=== PATIENT | male | born 1965 | race Two or more races ===

== ENCOUNTER 2018-04-23 07:28 | Outpatient (CLI) | payer BC ==
[2018-04-23 11:20] LABS: BUN - BLOOD UREA NITROGEN 12 mg/dL (6-20); CALCIUM 8.7 mg/dL (8.5-10.3); CARBON DIOXIDE - CO2 26 mmol/L (21-32); CHLORIDE 106 mmol/L (101-111); CHOL/HDL RATIO 5.1 (<5.0); CHOLESTEROL 187 mg/dL; CREATININE 0.8 mg/dL (0.6-1.2); GFR - MDRD 101 (>89); GLUCOSE 107 mg/dL (70-100); HDL CHOLESTEROL 37 mg/dL; LDL CHOLESTEROL,CALCULATED 118 mg/dL; LDL/HDL RATIO 3.2 (<3.6); SODIUM 138 mmol/L (135-145); VLDL CHOLESTEROL 32 mg/dL
[2018-04-24 12:51] LABS: HEPATITIS C ANTIBODY NON-REACTIVE (NON-REACTIVE)
[2018-04-24 14:52] LABS: HIV AG/AB 4TH GEN NON-REACTIVE (NON-REACTIVE)
== END 2018-04-23 07:29 | disposition home or self-care (01) ==
LOC: LAB.F 07:28
PROVIDERS: ATTEND Internal Medicine
DX: Z00.00 Encounter for general adult medical examination without abnormal findings (principal); Z72.52 High risk homosexual behavior
CPT/HCPCS: 36415; 80048; 80061; 83721; 86317; 86803; 87389

== ENCOUNTER 2018-10-16 12:08 | Outpatient (CLI) | payer BC | END 2018-10-16 12:09 | disposition home or self-care (01) | LOC: LAB.S 12:08 | PROVIDERS: ATTEND Internal Medicine | DX: E03.9 Hypothyroidism, unspecified (principal) | CPT/HCPCS: 36415; 84443 ==

== ENCOUNTER 2019-11-28 18:34 | Outpatient (CLI) | payer BC | END 2019-11-28 18:35 | disposition home or self-care (01) | LOC: COV 18:34 | PROVIDERS: ATTEND Family Medicine | DX: Z20.828 Contact with and (suspected) exposure to other viral communicable diseases (principal) ==

== ENCOUNTER 2020-01-19 10:44 | Outpatient (CLI) | payer BC | END 2020-01-19 10:45 | disposition home or self-care (01) | LOC: COV 10:44 | PROVIDERS: ATTEND Family Medicine | DX: Z20.828 Contact with and (suspected) exposure to other viral communicable diseases (principal) ==

== ENCOUNTER 2020-04-27 16:32 | Outpatient (CLI) | payer BC ==
[2020-04-27 20:01] LABS: BASOPHILS % (AUTO) 0.3 %; EOSINOPHILS # (AUTO) 0.2 10^3/uL (0.0-0.7); EOSINOPHILS % (AUTO) 2.5 %; LYMPHOCYTES # (AUTO) 2.6 10^3/uL (1.5-3.5); LYMPHOCYTES % (AUTO) 36.1 %; MEAN CORPUSCULAR HEMOGLOBIN 30.8 pg (27.0-31.0); MEAN CORPUSCULAR HGB CONC 33.4 g/dL (32.0-36.0); MEAN CORPUSCULAR VOLUME 92.2 fL (80.0-94.0); MEAN PLATELET VOLUME 10.1 fL (7.4-11.4); MONOCYTES # (AUTO) 0.7 10^3/uL (0.0-1.0); MONOCYTES % (AUTO) 8.9 %; NEUTROPHILS # (AUTO) 3.7 10^3/uL (1.5-6.6); PLT - PLATELET COUNT 217 10^3/uL (130-450); RED BLOOD COUNT 4.87 10^6/uL (4.70-6.10); RED CELL DISTRIBUTION WIDTH 13.4 % (12.0-15.0); WHITE BLOOD COUNT 7.3 x10^3/uL (4.8-10.8)
[2020-04-27 20:16] LABS: BUN - BLOOD UREA NITROGEN 14 mg/dL (6-20); CALCIUM 9.2 mg/dL (8.5-10.3); CARBON DIOXIDE - CO2 26 mmol/L (21-32); CHLORIDE 107 mmol/L (101-111); CHOL/HDL RATIO 5.5 (<5.0); CHOLESTEROL 218 mg/dL; CREATININE 0.8 mg/dL (0.6-1.2); GLUCOSE 81 mg/dL (70-100); HDL CHOLESTEROL 40 mg/dL; LDL CHOLESTEROL,CALCULATED 125 mg/dL; LDL/HDL RATIO 3.1 (<3.6); VLDL CHOLESTEROL 53 mg/dL
== END 2020-04-27 16:33 | disposition home or self-care (01) ==
LOC: LAB.S 16:32
PROVIDERS: ATTEND Physician Assistant
DX: Z00.00 Encounter for general adult medical examination without abnormal findings (principal); K21.9 Gastro-esophageal reflux disease without esophagitis; E03.9 Hypothyroidism, unspecified; Z79.899 Other long term (current) drug therapy
CPT/HCPCS: 36415; 80048; 80061; 83721; 84443; 85025

== ENCOUNTER 2020-04-30 07:07 | Outpatient (CLI) | payer BC | END 2020-04-30 07:08 | disposition home or self-care (01) | LOC: COV 07:07 | PROVIDERS: ATTEND Family Medicine | DX: R68.82 Decreased libido (principal); N52.9 Male erectile dysfunction, unspecified; Z20.822 Contact with and (suspected) exposure to COVID-19 | CPT/HCPCS: 36415; 81599; 84402; 84403 ==

== ENCOUNTER 2020-10-11 07:44 | Outpatient (CLI) | payer BC | END 2020-10-11 07:45 | disposition home or self-care (01) | LOC: LAB.S 07:44 | PROVIDERS: ATTEND Physician Assistant | DX: R68.82 Decreased libido (principal) | CPT/HCPCS: 81599; 84402; 84403 ==

== ENCOUNTER 2020-12-23 16:25 | Outpatient (CLI) | payer BC | END 2020-12-23 16:26 | disposition home or self-care (01) | LOC: COV 16:25 | PROVIDERS: ATTEND Family Medicine | DX: Z20.822 Contact with and (suspected) exposure to COVID-19 (principal) ==